=== PATIENT | female | born 1985 | race Caucasian/White ===

== ENCOUNTER → 2017-12-26 10:47 | Outpatient (CLI) | payer OTHER, SELFPAY ==
--- NOTE | 2017-12-26 10:49 | ECHOD_ITS ---
Reason For Study: arrhythmia Procedure This was a 2D Doppler, Color Flow transthoracic echocardiogram. Exam performed in department. Left Ventricle Normal LV size. Left ventricular systolic function is normal. The estimated ejection fraction is 60 %. Normal diastology for age. No regional wall motion abnormalities noted. Right Ventricle Normal RV size. Normal systolic function. Atria Normal left atrium. Normal right atrium. Mitral Valve Normal mitral valve. Tricuspid Valve Normal tricuspid valve. Mild (1+) tricuspid valve insufficiency. Pulmonary artery systolic pressure is 27 mmHg. Aortic Valve Normal aortic valve. Pulmonic Valve Normal pulmonic valve. Great Vessels Normal aortic root. The pulmonary artery is normal size. Normal inferior vena cava. Pericardium/Pleural No pericardial effusion. MMode/2D Measurements & Calculations LVIDd: 4.4 cm IVSd: 0.83 cm Ao root diam: 2.9 cm LVIDs: 2.9 cm LVPWd: 0.86 cm LA dimension: 4.0 cm RVDd: 3.1 cm FS: 35.6 % LAV(MOD-bp): 48.2 ml LA A4 area: 16.6 cm2 RA A4 area: 15.7 cm2 LAV(MOD-bp) Indexed: 24.6 ml/m2 LAV(MOD-sp2): 41.7 ml LAV(MOD-sp4): 41.9 ml Time Measurements MV dec time: 0.20 sec Doppler Measurements & Calculations MV E max jett: 74.0 cm/sec Lat Peak E' Jett: 18.0 cm/sec Med Peak E' Jett: 15.9 cm/sec MV A max jett: 39.1 cm/sec E/E' lat: 4.1 E/E' med: 4.6 MV E/A: 1.9 Ao V2 max: 111.0 cm/sec LV V1 max: 85.3 cm/sec PA V2 max: 121.2 cm/sec Ao max P.9 mmHg LV V1 max P.9 mmHg TR max jett: 238.2 cm/sec TR max P.7 mmHg Interpretation Summary Normal LV size. Left ventricular systolic function is normal. The estimated ejection fraction is 60 %. Mild (1+) tricuspid valve insufficiency. Pulmonary artery systolic pressure is 27 mmHg. Ordering Physician: Valente Woods Referring Physician: Garry Escudero Performed By: Damaris Santos, VIRIDIANA, RVT
== END ==
PROVIDERS: Family Provider Family Medicine; PCP Family Medicine; Visit Provider Internal Medicine Cardiovascular Disease
DX: R55 Syncope and collapse (principal)
CPT/HCPCS: 93306

== ENCOUNTER → 2019-02-16 | Outpatient (CLI) | payer OTHER, SELFPAY ==
--- OUTSIDE RECORDS SUMMARY | 2019-02-16 11:04 | XMS RPT_ITS | CCD ---
:1985 External Reference #:[id number] Author Organization [employer] Care Team Providers Name Role Phone Unavailable Unavailable Unavailable Allergies Reported Allergen Reaction(s) Severity Date of Onset Location doxycycline Translations: AO 09-27-2008 - [facility] [ doxycycline, [facility] Repository DOXYCYCLINE] haloperidol Translations: AOF 10-26-2012 - [facility] [ HALOPERIDOL] [place] Repository Results Result Name Value Range Unit Interpretation Flag Date Location quanttb on 2019-02-04 Mitogen minus NIL 6.16 Normal 02-04-2019 [facility] ([place] ([id number]) Comment: Result Comment: Performed By: [facility] [place] [id number] Sales Record Clerk: Alicia Jaffe M.D. CLIA#: [id number] Phone#: Performed By: #### INTPGP #### [place] [address] TB Interpretation No evidence of current Normal 02-04-2019 [facility] or previous infection [facility] [place]) with Mycobacterium (64439) tuberculosis. Comment: Result Comment: Performed By: [place] [address] Sales Record Clerk: Alicia Jaffe M.D. CLIA#: [id number] Phone#: Performed By: #### INTPGP #### [place] [address] TB NIL 0.11 IU/mL Normal 02-04-2019 [facility] [place] ([id number]) Comment: Result Comment: Performed By: [place] [address] Sales Record Clerk: Alicia Jaffe M.D. CLIA#: [id number] Phone#: Performed By: #### INTPGP #### [place] [address] TB Result Negative NEGAT Normal 02-04-2019 [facility] [place] ([id number]) Comment: Result Comment: Performed By: [facility] [place] [address] Sales Record Clerk: Alicia Jaffe M.D. CLIA#: [id number] Phone#: Performed By: #### INTPGP #### [place] [address] TB1 Ag minus NIL 0.00 <0.35 IU/mL Normal 02-04-2019 [facility] [place] ([id number]) Comment: Result Comment: Performed By: [facility] [place] [address] Sales Record Clerk: Alicia Jaffe M.D. CLIA#: [id number] Phone#: Performed By: #### INTPGP #### [place] [address] TB2 Ag minus NIL 0.00 <0.35 IU/mL Normal 02-04-2019 [facility] [place] ([id number]) Comment: Result Comment: Performed By: [facility] [place] [address] Sales Record Clerk: Alicia Jaffe M.D. CLIA#: [id number] Phone#: Performed By: #### INTPGP #### [place] [address] xr hand 3+ views right on 2018-04-08 XR Hand 3+ Exam Date/Time:04/07/2018 22:40 EDTReason Normal 04-08-[address] [facility] Views for Exam:Rt finger pain, Regional Right bruisingReportSTUDY:XR Hand 3+ Views Health System Right; 04/07/2018 10:40 pmINDICATION:Rt (03384) finger pain, bruising.COMPARISON:None. CLINICIAN:Travis mSith:Three views of the right hand including AP, oblique and lateral projections were obtained.FINDINGS:There is no evidence of acute fracture or dislocation identified. The joint spaces are well preserved throughout without significant degenerative changes.IMPRESSION:1. No fracture or dislocation. FINAL REPORT Dictated: 04/08/2018 1:51 pm Sd Rubio MD CSigned (Electronic Signature): 04/08/2018 1:51 pmSigned by: Sd Rubio MD Technologist: [facility] lab miscellaneous on 2017-11-15 Status See Ref Lab Report Normal 11-15-2017 [facility] ([id number]) Comment: Performed By: #### [id number] ####MIRNA [employer] [address] [place] [address] Test Name tb quantfereon Normal 11-15-2017 [facility] ([id number]) Comment: Performed By: #### [id number] ####MIRNA [employer] [address] [place] [address] hep bs ag on 2017-11-12 BSA (Body Surface Negative Negative m2 Normal 11-12-2017 [facility] ([id number]) Comment: Result Comment: Performed At: [facility] [id number] Vincent PhD Ph:[phone] Performed By: #### [id number] ####MIRNA [employer] Out[employer] [address] [place] [id number] hep bs ab on 2017-11-12 BSA (Body Surface Area) Reactive Normal 11-12-2017 [facility] ([id number]) Comment: Result Comment: Non Reactive: Inconsistent with immunity, less than 10 mIU/mL Reactive: Consistent with immunity, greater than 9.9 mIU/mLPerformed At: [facility] [id number] Vincent PhD Ph:[phone] Performed By: #### [id number] ####MIRNA [employer] [address] [place] [address] progress on 2017-05-26 PROGRESS HNO ID: [id number]: Tamir Burrows 05-26-2017 [facility] HospitalMelodyice: (none)Author Type: Clinic PhysicianType: Progress NotesFiled: Bird 05/26/2017 4:55 PMNote Text:Patient ([id number]) presents with:cough and congestion: x 2 weeksHPI:Feeling sick for 2 weeks. Seemed to improve then worsened again.Positive symptoms: Cough, Earache, Sinus pressure, Nasal Congestion,Rhinorrhea, Post nasal drainage, Chills,Negative symptoms: Fever,OTC: Nyquil, Dayquil, Cold Medicine, LozengesPAST MEDICAL HISTORYDiagnosis Date- Chronic depressive personality disorder With anxiety- Diarrhea- Dysmenorrhea 01/01 normal light flow- Infectious mononucleosis 1990- PCOS (polycystic ovarian syndrome)- PMH - PAST MEDICAL HISTORY OF [place] NORMALMEDICATIONS:Current Outpatient Prescriptions:DULoxetine (CYMBALTA) 60 mg capsule Take 60 mg by mouth once daily.omeprazole (PRILOSEC) 20 mg capsule TAKE 1 CAPSULE BY MOUTH ONCE DAILY.spironolactone (ALDACTONE) 50 mg tablet Take 1 tablet by mouth once daily.DAILY MULTIVITAMIN TAB Take one(1) tablet daily.Milnacipran (SAVELLA) 25 mg tab Take 1 tablet by mouth twice daily.ondansetron orally disintegrating (ZOFRAN ODT) 4 mg disintegrating tabletTake 1 tablet by mouth every 6 hours as needed for Nausea/Vomiting.clonazePAM (KLONOPIN) 1 mg tablet Take 1 mg by mouth twice daily asneeded. 0.25 bid as necessaryMethylcellulose, Laxative, (CITRUCEL) 500 mg Tab Take 2 tablets by mouthtwice daily.loperamide 2 mg cap(s) Take 2 capsules by mouth as directed. take in theam.No current facility-administered medications for this visit.ALLERGIES:ALLERGIESAllergen Reactions- Doxycycline Intolerance- Haldol [Haloperidol] Other: See Comments Feels suicidalVITALS:BP 100/64 Pulse 68 Temp 36.7 ?C (98 ?F) (Tympanic) Resp 16 Wt 91.4kg (201 lb 9.6 oz) SpO2 97% BMI 32.02 kg/a6PBAJNPKH EXAM: GEN: mildly ill appearing HEENT: PERRL, EOMI, conjunctiva clear Ears: canals clear, TMs without erythema, bulge, or effusion Sinuses: tender maxillary sinuses, tender frontal sinus Throat: moist mucous membranes, mild erythema, no exudate Neck: supple, no thyromegaly, no lymphadenopathy HEART: regular rate and rhythm, no murmurs LUNGS: clear to auscultation, no wheezes or crackles, no increased WOBASSESSMENT/PLAN:1. Acute non-recurrent sinusitis, unspecified location - ICD9: 461.9,ICD10: J01.90- Will begin treatment with as per antibiotic as written, see orders- AMOXICILLIN 875 MG TABLETTamir Navas MD cnov on 2017-05-26 CNOV Office Visit Normal 05-26-2017 [place] ([facility]) SUGAR CHENEY [facility] ([id number]) 1985 FDate Time Provider Department05/26/17 4:45 PM TAMIR NAVAS [facility] During your [place] visit today, we recorded the following information about you: Temperature Pulse Respiration Blood pressure (29156) 98 degrees 68/minute 16/minute 100/64 Weight 91.4 kgTamir Navas MD 05/26/2017 4:55 PM SignedPatient presents with:cough and congestion: x 2 weeksHPI:Feeling sick for 2 weeks. Seemed to improve then worsened again.Positive symptoms: Cough, Earache, Sinus pressure, Nasal Congestion,Rhinorrhea, Post nasal drainage, Chills,Negative symptoms: Fever,OTC: Nyquil, Dayquil, Cold Medicine, LozengesPAST MEDICAL HISTORYDiagnosis Date- Chronic depressive personality disorder With anxiety- Diarrhea- Dysmenorrhea 01/01 normal light flow- Infectious mononucleosis 1990- PCOS (polycystic ovarian syndrome)- PMH - PAST MEDICAL HISTORY OF [place] NORMALMEDICATIONS:Current Outpatient Prescriptions:DULoxetine (CYMBALTA) 60 mg capsule Take 60 mg by mouth once daily.omeprazole (PRILOSEC) 20 mg capsule TAKE 1 CAPSULE BY MOUTH ONCE DAILY.spironolactone (ALDACTONE) 50 mg tablet Take 1 tablet by mouth once daily.DAILY MULTIVITAMIN TAB Take one(1) tablet daily.Milnacipran (SAVELLA) 25 mg tab Take 1 tablet by mouth twice daily.ondansetron orally disintegrating (ZOFRAN ODT) 4 mg disintegrating tablet Take1 tablet by mouth every 6 hours as needed for Nausea/Vomiting.clonazePAM (KLONOPIN) 1 mg tablet Take 1 mg by mouth twice daily as needed.0.25 bid as necessaryMethylcellulose, Laxative, (CITRUCEL) 500 mg Tab Take 2 tablets by mouth twicedaily.loperamide 2 mg cap(s) Take 2 capsules by mouth as directed. take in the am.No current facility- administered medications for this visit.ALLERGIES:ALLERGIESAllergen Reactions- Doxycycline Intolerance- Haldol [Haloperidol] Other: See Comments Feels suicidalVITALS:BP 100/64 Pulse 68 Temp 36.7 ?C (98 ?F) (Tympanic) Resp 16 Wt 91.4 kg(201 lb 9.6 oz) SpO2 97% BMI 32.02 kg/s7EJEYZMPG EXAM: GEN: mildly ill appearing HEENT: PERRL, EOMI, conjunctiva clear Ears: canals clear, TMs without erythema, bulge, or effusion Sinuses: tender maxillary sinuses, tender frontal sinus Throat: moist mucous membranes, mild erythema, no exudate Neck: supple, no thyromegaly, no lymphadenopathy HEART: regular rate and rhythm, no murmurs LUNGS: clear to auscultation, no wheezes or crackles, no increased WOBASSESSMENT/PLAN:1. Acute non-recurrent sinusitis, unspecified location - ICD9: 461.9, ICD10:J01.90- Will begin treatment with as per antibiotic as written, see orders- AMOXICILLIN 875 MG Arlyn Navas, MDReferring Provider: SELF [200]Allergies As of Date: 05/26/2017 Noted Allergy ReactionDOXYCYCLINE 09/27/2008 5 - IntoleranceHALDOL (HALOPERIDOL) 10/26/2012 14 - Other: See Comments Comments: Feels suicidalDate Reviewed: 05/26/2017Reviewed by: Cindi Tavares LPN - Fully AssessedReason for Visit: cough and congestion [Other] Cmt: x 2 weeksPrimary Visit Diagnosis:Acute non-recurrent sinusitis, unspecified location [J01.90]Order(s):amoxicillin (AMOXIL) 875 mg tabletTake 1 tablet by mouth twice daily for 7 days.Disp: 14 tabletRfl: 0Prescriptions as of 05/26/2017 Sig: DULOXETINE 60 MG CAPSULE,SYDNEE* Take 60 mg by mouth once yoselin* OMEPRAZOLE 20 MG CAPSULE,SYDNEE* TAKE 1 CAPSULE BY MOUTH ONCE * SPIRONOLACTONE 50 MG TABLET Take 1 tablet by mouth once d* DAILY MULTIVITAMIN TABLET Take one(1) tablet daily. AMOXICILLIN 875 MG TABLET Take 1 tablet by mouth twice * MILNACIPRAN 25 MG TABLET Take 1 tablet by mouth twice * ONDANSETRON 4 MG DISINTEGRATI* Take 1 tablet by mouth every * CLONAZEPAM 1 MG TABLET Take 1 mg by mouth twice yoselin* METHYLCELLULOSE (LAXATIVE) 50* Take 2 tablets by mouth twice* LOPERAMIDE 2 MG CAPSULE Take 2 capsules by mouth as d*Medication notes this encounter MILNACIPRAN 25 MG TABLET >> Cindi Tavares LPN 05/26/2017 4:45 PM >> CINDI TAVARES LPN [facility] May 26, 2017 4:45 PM Not Taking CLONAZEPAM 1 MG TABLET >> Cindi Tavares LPN 05/26/2017 4:45 PM >> CINDI TAVARES LPN [facility] May 26, 2017 4:45 PM Not TakingProblem List As Of Date 05/26/2017 Noted Resolved DYSMENORRHEA [N94.6] INVALID FOR*05/31/2008 CHRONIC DEPRESSIVE PERSON [F34.1] INVALID FOR* Dysmetabolic syndrome [E88.81] INVALID FOR* Diarrhea [R19.7] PCOS (polycystic ovarian syndrome) [E28.2] INVALID FOR* More... GERD (gastroesophageal reflux disease) [K21.9] INVALID FOR* Priority: APrescriptions ordered this encounter Disp Refills Start End AMOXICILLIN 875 MG TABLET 14 t* 0 05/26/2017 06/02/2017 Route: ORAL Sig: Take 1 tablet by mouth twice daily for 7 days. Status:Closed by TAMIR NAVAS MD on 05/26/17 Encounters Date Type Reason Provider Location [facility] 04-08-2018 [facility] Garry Escudero 11-10-2017 - Ambulatory [facility] Facility:[facility] 11-11-2017 [facility] 05-26-2017 - Ambulatory TAMIR NAVAS [facility] 05-26-2017 [place] ([id number]) 04-01-2018 - Emergency department [facility] Facility:[facility] 04-01-2018 patient visit A [facility] 04-07-2018 Patient encounter Facility:[id number] 04-01-2018 Patient encounter Facility:9509 01-31-2019 - Patient encounter BEN BELGICA BEN Facility:A 02-01-2019 paul LINDO Payers Payer Name Policy Number Location [facility] ([id number]) Commercial [id number] [facility] ([id number]) SELF PAY [facility] [place] ([id number]) [facility] ([id number]) [facility] [id number] [facility] ([id number]) [id number] [facility] [place] (35276) The following information is from the original human readable content ENCOUNTER GUARANTOR PAYER SUBSCRIBER SOURCE 04/07/2018 SUGAR CHENEYDOB: [facility] [id number] [facility] [id number] [facility] System [facility] RDAPPLE Number: Effective RDAPPLE [place], [place] Date:2018-04-07 [id number]: [phone]: [phone] [phone] ()Tel: [phone]) Name:CD:[phone] (WP) () 04/01/2018 SUGAR HSIEHB: Insurance:[facility]B: [facility] Number: Effective [id number] LIB[facility] System [facility] RDAPPLE Date:2018-04-01 - RDAPPLOS [place] Repository [facility] [place] [id number] [phone]: [phone]: Name:Worker's [phone] (HP)Tel: [phone]) [id number] [phone] (WP) (HP) [place], [place] [address]JH: 614 11/10/2017 [facility] Number: Effective [id number] LIBRADO System LIBRADO ROApple Date:2017-11-10 [place] [id number] [id number]: [phone]: [phone]) Name:CD:[id number] [phone] (HP)Tel: [phone] () [facility] () [address]XD: ENCOUNTER GUARANTOR PAYER SUBSCRIBER SOURCE 04/07/2018 [facility] [id number] Repository LIBRADO RDAPPLE [facility] Number: [place] [address] [place] [id number] [id number]: Date:Plan [id number]: [phone]) Name:[facility] [phone] () () 04/01/2018 [facility]: [facility] lPolicy Number: [id number] Repository LIBRADO ROApple [id number] LIBRADO [place], [place] Date:[place], [place] [address]Qvh: [phone]: [phone]) Name:[facility] () [phone] (HP) ENCOUNTER GUARANTOR PAYER SUBSCRIBER SOURCE 01/31/2019 SUGAR Gagandeep Primary SUGAR [facility] HospitalTETTERDOB: Insurance:SELF [facility]Y [facility]: [facility] [id number] INSCOPolicy Number: [id number] Repository LIBRADO DALAL [place] [address] Date:2019-01-31 [place] [id number] [id number]: (000) Name:[phone] (WP) Summary Purpose DATE CREATED AUTHOR AUTHOR'S ORGANIZATION 04/18/2018 [facility] DATE CREATED AUTHOR AUTHOR'S ORGANIZATION 04/26/2018 [facility] DATE CREATED AUTHOR AUTHOR'S ORGANIZATION 06/22/2018 [facility] DATE CREATED AUTHOR AUTHOR'S ORGANIZATION 02/05/2019 [facility] [place]) Family History No Family History Records Found Advance Directives No Advanced Directives Records Found Additional Source Comments FOR RECORDS PERTAINING TO PATIENTS WHO ARE OR HAVE BEEN ENROLLED IN A CHEMICAL DEPENDENCY/SUBSTANCE ABUSE PROGRAM, SOME INFORMATION MAY BE OMITTED. This clinical summary was aggregated from multiple sources. Caution should be exercised in using it in the provision of clinical care. This summary normalizes information from multiple sources, and as a consequence, information in this document may materially changethe coding, format and clinical context of patient data. In addition, data may be omittedin some cases. CLINICAL DECISIONS SHOULD BE BASED ON THE PRIMARY CLINICAL RECORDS. [facility] provides no warranty or guarantee of the accuracy or completeness of information in this document. UNRECOGNIZED CONTENT PROVIDED BELOW FOR UNRECOGNIZED SECTION INFORMATION SOURCE DATE CREATED AUTHOR AUTHOR'S ORGANIZATION 02/05/2019 [facility] [place]) DATE CREATED AUTHOR AUTHOR'S ORGANIZATION 06/22/2018 [facility] DATE CREATED AUTHOR AUTHOR'S ORGANIZATION 04/26/2018 [facility] DATE CREATED AUTHOR AUTHOR'S ORGANIZATION 04/18/2018 [facility]
[2019-02-16 13:13] LABS: Anion Gap 7 (5-15); BUN 7 mg/dL (7-18); BUN/Creat Ratio 8.5 RATIO (10-20); Calcium,Total 9.1 mg/dL (8.5-10.1); Chloride 106 mmol/L (98-107); Cholesterol 211 mg/dL (200); Creatinine, Serum 0.82 mg/dL (0.55-1.02); EST Glomerular Filtration Rate 85 mL/min (>60); Est Glom Filt Rate - Afr Amer 103 mL/min (>60); Glucose 94 mg/dL (74-106); High Density Lipoprotein 49 mg/dL; Potassium 4.1 mmol/L (3.5-5.1); Sodium Level 142 mmol/L (136-145); Triglycerides 95 mg/dL; Very Low Density Lipoprotein 19 mg/dL (5-40)
== END | disposition home or self-care (01) ==
PROVIDERS: Family Provider Family Medicine; PCP Family Medicine; Referring Provider Family Medicine; Visit Provider Family Medicine
DX: Z00.00 Encounter for general adult medical examination without abnormal findings (principal)
CPT/HCPCS: 36415; 80048; 80061

== ENCOUNTER → 2019-03-13 18:08 | Outpatient (CLI) | payer OTHER, SELFPAY ==
[2018-03-03 13:06] VITALS: BMI 30.9
[2019-03-20 16:40] LABS: HPV Reflexed? NOT INDICATED
== END ==
PROVIDERS: Family Provider Family Medicine; PCP Family Medicine; Referring Provider Nurse Practitioner Adult Health; Visit Provider Nurse Practitioner Adult Health
DX: Z01.419 Encounter for gynecological examination (general) (routine) without abnormal findings (principal)
CPT/HCPCS: 88175; G0145

== ENCOUNTER → 2019-07-16 | Outpatient (CLI) | payer OTHER, SELFPAY ==
[2019-03-20 15:16] VITALS: BMI 29.9
--- NOTE | 2019-07-16 06:45 | MRI_ITS ---
STUDY: MRI BRAIN WITHOUT CONTRAST REASON FOR EXAM: Female, 34 years old. headaches, left occipital, change in location and severity from prev headaches. TECHNIQUE: Standardized multiplanar fat and water weighted pulse sequences were obtained. COMPARISON: None. FINDINGS: Normal size of the ventricles and extra-axial spaces for the patient's age. Normal white matter tracts of the supratentorial brain. Normal bilateral basal ganglia. Normal thalami. There is no extra-axial fluid accumulation. Normal flow voids within the major intracranial circulation suggesting patency by spin echo criteria. Normal sella turcica, pituitary gland, infundibular stalk, optic chiasm and hypothalamus. Normal tectal plate and pineal gland. Normal midbrain, moisés and medulla. Normal cerebellum. Normal basal cisterns. Normal bilateral temporal bones. Normal bilateral internal auditory canals. No demonstrated orbital abnormality, within the constraints of a routine brain study. Normal visualized paranasal sinuses. Normal calvarium and skull base. Normal visualized soft tissue structures. Normal visualized upper cervical spine. MRI/Brain without Contrast IMPRESSION: Normal unenhanced MRI of the brain. Electronically Signed: Anahi Bourgeois MD at 9:04 EDT Tel , Service support ,
== END | disposition home or self-care (01) ==
LOC: MRI 06:40
PROVIDERS: Family Provider Family Medicine; PCP Family Medicine; Referring Provider Family Medicine; Visit Provider Family Medicine
DX: R51 Headache (principal)
CPT/HCPCS: 70551

== ENCOUNTER → 2019-11-06 12:59 | Outpatient (CLI) | payer OTHER, SELFPAY ==
[2019-03-20 15:16] VITALS: BMI 29.9
== END ==
PROVIDERS: Family Provider Family Medicine; PCP Family Medicine; Referring Provider Internal Medicine Gastroenterology; Visit Provider Internal Medicine Gastroenterology
DX: K21.9 Gastro-esophageal reflux disease without esophagitis (principal)

== ENCOUNTER → 2019-11-06 13:27 | Outpatient (CLI) | payer OTHER, SELFPAY ==
[2019-03-20 15:16] VITALS: BMI 29.9
--- NOTE | 2019-11-06 | IMM_PTH ---
PATIENT: SUGAR CHENEY LOC: [place] U#:[id number] AGE/SX: 40/F ROOM: RE11/06/[address]: Dr. Jay Aragon MD : 1985 BED: DIS: SPEC #: [id number] RECD: 11/06/19 14:41 STATUS: MARJORIE REQ #: [id number] TWIN: 11/06/19 00:[address]: Jay Aragon DEPT: IMMUNOHISTOCHEMISTRY RECD BY: Grisel Wolfe ENTERED: 11/06/19 14:41 SP TYPE: IMMUNO OTHR DR: Dr. Garry Escudero MD Tissues: Stomach, NOS Procedures: H Pylori (initial) PHYSICIAN & INSTITUTION [place] [id number] SPECIMEN INFORMATION: Tissue Source: Antral biopsy Clinical Info: K21.9 Specimen Number: [id number] CPT code: 36569 METHODOLOGY: Deparaffinized sections of prefer/formalin-fixed tissue or PAP/DQ stained slides are incubated with monoclonal/polyclonal antibodies/oligonucleotide probes. Localization is made via biotin free immunoperoxidase method. Appropriate controls are performed and reacted as expected. Results on target cell population are indicated in the following table: RESULTS: ANTIBODY / CLONE RESULT H Pylori (polyclonal) negative These tests were developed and their performance characteristics determined by [facility]. They may not have been cleared or approved by the U.S. Food and Drug Administration. The FDA has determined that such clearance or approval is not necessary. INTERPRETATION: Antral biopsy: Negative for Helicobacter pylori organisms. AM:clarissa 11/07/19
--- NOTE | 2019-11-06 | EGD_PTH ---
PATIENT: SUGAR CHENEY [facility] U#:[id number] AGE/SX: 40/F ROOM: RE11/06/[address]: [address]. Jay Aragon MD : 1985 BED: DIS: SPEC #: [id number] RECD: 11/06/19 12:13 STATUS: MARJORIE REAinsley #: [id number] TWIN: 11/06/19 00:[address]: Jay Aragon DEPT: SURGICAL PATHOLOGY RECD BY: Pineda Silva ENTERED: 11/06/19 13:33 SP TYPE: EGD BIOPSY DULCE DR: Dr. Garry Escudero MD Tissues: Gastric mucous membrane Procedures: Surgery Specimen Level IV HEADER OPERATION: EGD PRE-OP DIAGNOSIS: K21.9 TISSUE SUBMITTED: Antral biopsy H/H MICROSCOPIC DIAGNOSIS Gastric antrum, biopsy: Mild chronic gastritis. See comment. AM:clarissa 11/07/19 COMMENT The results of immunohistochemistry for Helicobacter pylori will be reported separately ([id number]). MICROSCOPIC DESCRIPTION Slides are reviewed. GROSS DESCRIPTION Received in fixative is one container labeled with the patient's name and designated antral biopsy. The specimen consists of multiple irregular fragments of light pavon soft tissue that in aggregate measure 0.5 x 0.2 x 0.1 cm. The specimen is totally submitted in one cassette. / SJ:clarissa 11/06/19 TC:3 CPT: 56738
== END ==
PROVIDERS: Family Provider Family Medicine; PCP Family Medicine; Visit Provider Internal Medicine Gastroenterology
DX: K21.9 Gastro-esophageal reflux disease without esophagitis (principal)
CPT/HCPCS: 88305; 88342

== ENCOUNTER → 2020-11-25 11:09 | Outpatient (CLI) | payer OTHER, SELFPAY ==
[2019-03-20 15:16] VITALS: BMI 29.9
[2020-11-25 12:03] LABS: Hematocrit 39.6 % (37-47); Hemoglobin 13.3 g/dL (12.0-15.0); Mean Corp Hgb Conc 33.6 g/dL (32-36); Mean Corpuscular Hgb 30.6 pg (27.0-32.0); Mean Corpuscular Volume 91.2 fL (81-99); Mean Platelet Vol. 9.7 fl (6.2-12.0); Platelet Count 256 K/mm3 (150-450); RBC Distribution Width CV 12.1 % (11.6-14.6); RBC Distribution Width SD 40.7 fl (35.1-43.9); Red Blood Count 4.34 M/mm3 (4.2-5.4); White Blood Count 5.4 K/mm3 (4.4-11.0)
[2020-11-25 12:49] LABS: ALB/GLOB Ratio 0.9 RATIO (0.9-2.4); AST(SGOT) 12 U/L (15-37); Alanine Aminotransfer ALT/SGPT 17 U/L (13-56); Albumin, Serum 3.3 g/dL (3.2-5.0); Alkaline Phosphatase 37 U/L (45-117); Anion Gap 5 (5-15); BUN 9 mg/dL (7-18); BUN/Creat Ratio 11.7 RATIO (10-20); Calcium,Total 8.6 mg/dL (8.5-10.1); Chloride 109 mmol/L (98-107); Cholesterol 198 mg/dL (200); Creatinine, Serum 0.77 mg/dL (0.55-1.02); EST Glomerular Filtration Rate 91 mL/min (>60); Est Glom Filt Rate - Afr Amer 110 mL/min (>60); Globulin 3.6 g/dL (2.2-4.2); Glucose 96 mg/dL (74-106); High Density Lipoprotein 67 mg/dL; Potassium 4.1 mmol/L (3.5-5.1); Protein, Total 6.9 g/dL (6.4-8.2); Sodium Level 141 mmol/L (136-145); Thyroid Stim Hormone (TSH) 2.04 uIU/mL (0.358-3.74); Triglycerides 89 mg/dL; Very Low Density Lipoprotein 18 mg/dL (5-40)
== END ==
PROVIDERS: PCP Family Medicine; Visit Provider Registered Nurse
DX: Z00.00 Encounter for general adult medical examination without abnormal findings (principal)
CPT/HCPCS: 36415; 80053; 80061; 84443; 85027

== ENCOUNTER → 2021-01-13 14:07 | Outpatient (CLI) | payer OTHER, SELFPAY ==
[2019-03-20 15:16] VITALS: BMI 29.9
--- NOTE | 2021-01-13 14:11 | BI_ITS ---
MAMMOGRAPHY - BILATERAL DIAGNOSTIC REASON FOR EXAM: Female, 35 years old. Left breast lump. PERTINENT HISTORY: Non-contributory. TECHNIQUE: Digital bilateral breast anne marie (3D mammographic acquisition) in the CC and MLO projections. 2-D mediolateral oblique (MLO) and craniocaudad (CC) views of both breasts were obtained. CAD: Full Field Digital Mammography with Computer Added Detection was performed. COMPARISON: None. Baseline examination. FINDINGS: Breast Composition: The breasts are extremely dense, which lowers the sensitivity of mammography. There are no dominant masses or suspicious calcifications. No other significant abnormalities are identified. BI/DIAG MAMM W/CAD, BILAT IMPRESSION: Negative diagnostic mammogram. With the patient''s history of a left breast lump, correlation with ultrasound is recommended. ASSESSMENT CATEGORY: BIRADS Category 0: Incomplete. Need additional imaging evaluation. A letter regarding these results will be sent to the patient by the facility within 30 days. Approximately 10% of breast cancers are not detected by mammography. A normal mammogram should not delay biopsy of a clinically suspicious abnormality. Electronically Signed: Jerrod Lim MD at 15:03 EDT , Service support ,
--- NOTE | 2021-01-13 14:12 | US_ITS ---
STUDY: ULTRASOUND BREAST - LEFT REASON FOR EXAM: Female, 35 years old. Palpable lump left breast. TECHNIQUE: Axial and longitudinal images of the LEFT breast were performed with a high resolution ultrasound transducer. # OF IMAGES: 9 COMPARISON: Comparison is made with prior mammogram done earlier in the day. FINDINGS: LEFT Breast: The inferior aspect of the left breast was examined by ultrasound. No sonographic abnormality is seen. US/Breast Limited Unilateral IMPRESSION: No sonographic abnormality is seen. ASSESSMENT CATEGORY: BIRADS Category 1: Negative. A letter regarding these results will be sent to the patient by the facility within 30 days. Electronically Signed: Jerrod Lim MD at 15:54 EDT , Service support ,
== END ==
PROVIDERS: PCP Family Medicine; Referring Provider Obstetrics & Gynecology; Visit Provider Obstetrics & Gynecology
DX: N63.20 Unspecified lump in the left breast, unspecified quadrant (principal)
CPT/HCPCS: 76642; 77062; 77066; G0279

== ENCOUNTER → 2021-07-02 07:51 | Outpatient (CLI) | payer OTHER, SELFPAY | PROVIDERS: PCP Family Medicine; Referring Provider Family Medicine; Visit Provider Family Medicine | DX: R19.7 Diarrhea, unspecified (principal) | CPT/HCPCS: 87493; 87506 ==

== ENCOUNTER → 2021-08-18 16:11 | Outpatient (CLI) | payer OTHER, SELFPAY ==
[2021-08-24 15:22] LABS: HPV Reflexed? NOT INDICATED
== END ==
PROVIDERS: PCP Family Medicine; Visit Provider Obstetrics & Gynecology
DX: Z12.4 Encounter for screening for malignant neoplasm of cervix (principal); R30.0 Dysuria
CPT/HCPCS: 87086; 87088; 88175; G0145

== ENCOUNTER 2022-01-19 13:32 | Outpatient (CLI) | payer OTHER, SELFPAY ==
[2022-01-19 15:20] LABS: Hematocrit 41.2 % (37-47); Hemoglobin 13.8 g/dL (12.0-15.0); Mean Corp Hgb Conc 33.5 g/dL (32-36); Mean Corpuscular Hgb 30.1 pg (27.0-32.0); Mean Corpuscular Volume 89.8 fL (81-99); Mean Platelet Vol. 9.8 fl (6.2-12.0); Platelet Count 271 K/mm3 (150-450); RBC Distribution Width CV 12.2 % (11.6-14.6); RBC Distribution Width SD 40.4 fl (35.1-43.9); Red Blood Count 4.59 M/mm3 (4.2-5.4); White Blood Count 4.8 K/mm3 (4.4-11.0)
[2022-01-19 15:44] LABS: Estradiol < 11.0 pg/mL; Follicle Stimulating Hormone 1.6 mIU/mL; Luteinizing Hormone 8.4 mIU/mL; T4 Free Direct 0.83 ng/dL (0.76-1.46); Thyroid Stim Hormone (TSH) 1.29 uIU/mL (0.358-3.74)
== END 2022-01-19 23:59 | disposition home or self-care (01) ==
LOC: WOBLAB 13:33
PROVIDERS: PCP Family Medicine; Visit Provider Obstetrics & Gynecology
DX: R61 Generalized hyperhidrosis (principal)
CPT/HCPCS: 36415; 82670; 83001; 83002; 84439; 84443; 85027

== ENCOUNTER → 2022-10-12 | Outpatient (CLI) | payer OTHER, SELFPAY ==
[2022-10-12 15:15] LABS: Absolute Neutrophil Count 3.6 X10^3/uL (2.0-7.7); Basophil# 0.01 X10^3/uL; Basophil% 0.2 % (0-1); Eosinophil# 0.06 X10^3/uL; Hematocrit 45.7 % (37-47); Lymphocyte % 29.2 % (19-41); Mean Corp Hgb Conc 32.8 g/dL (32-36); Mean Corpuscular Volume 91.4 fL (81-99); Mean Platelet Vol. 9.1 fl (6.2-12.0); Monocyte# 0.46 X10^3/uL; Monocyte% 7.9 % (0-10); NRBC Flagged by Analyzer 0 % (0-5); Neutrophil # 3.58 X10^3/uL (2.7-7.7); Neutrophil % 61.5 % (47-70); Platelet Count 277 K/mm3 (150-450); RBC Distribution Width CV 12.3 % (11.6-14.6); RBC Distribution Width SD 41.1 fl (35.1-43.9); White Blood Count 5.8 K/mm3 (4.4-11.0)
[2022-10-12 15:58] LABS: Estradiol 249.5 pg/mL; Follicle Stimulating Hormone 13.2 mIU/mL; Luteinizing Hormone 97.1 mIU/mL; T4 Free Direct 0.88 ng/dL (0.76-1.46); Thyroid Stim Hormone (TSH) 1.06 uIU/mL (0.358-3.74)
[2022-10-21 10:08] LABS: Testosterone, Free 0.53 ng/dL (0.10-0.85); Testosterone, Total 30 ng/dL (8-60)
[2022-10-21 16:19] LABS: Testosterone, % Free 1.75 % (0.50-2.80)
== END | disposition home or self-care (01) ==
LOC: WOBLAB 14:56
PROVIDERS: PCP Family Medicine; Visit Provider Obstetrics & Gynecology
DX: N93.9 Abnormal uterine and vaginal bleeding, unspecified (principal)
CPT/HCPCS: 36415; 82670; 83001; 83002; 84402; 84403; 84439; 84443; 85025

== ENCOUNTER → 2023-03-29 | Outpatient (CLI) | payer OTHER, SELFPAY ==
[2023-03-31 22:06] LABS: Chlamydia By Nucleic Acid AMP Negative (Negative); Gonococcus By Nucleic Acid AMP Negative (Negative)
== END | disposition home or self-care (01) ==
LOC: LABSPEC 15:10
PROVIDERS: PCP Family Medicine; Visit Provider Obstetrics & Gynecology
DX: N76.0 Acute vaginitis (principal)
CPT/HCPCS: 87491; 87591

== ENCOUNTER 2023-05-17 05:56 | Day surgery (SDC) | payer OTHER, SELFPAY ==
[2023-05-17] VITALS (7 sets, daily range): BP systolic 110–116; BP diastolic 69–78; PULSE 61–70; RESP 16–18; TEMP 36.5–36.6; O2SAT 99–100; BMI 27.2
--- NOTE | 2023-05-17 06:09 | PCM.HP.BLA ---
History and Physical Date of Admission: 05/17/23 Visit Reasons: C-Scope family HX & Diarrhea Chief Complaint: c-scope fam hx Service Now Developer Required: No Is patient in pain?: No Allergies doxycycline Allergy (Verified 04/20/23 08:01) Otherhaloperidol [From Haldol] Allergy (Verified 04/20/23 08:01) Otherhaloperidol lactate [From Haldol] Allergy (Verified 04/20/23 08:01) Other Medications cetirizine 10 mg tablet (Zyrtec) 10 mg PO QDAY 11/25/17 [History Confirmed 03/20/19] melatonin 5 mg capsule mg PO QHS 11/25/17 [History Confirmed 03/20/19] multivitamin,it-zxyw-yxpftdji (Complete Multivitamin tablet) 1 tab PO QDAY 11/25/17 [History Confirmed 03/20/19] omeprazole 40 mg capsule,delayed release 40 mg PO QDAY 11/25/17 [History Confirmed 03/20/19] spironolactone 50 mg tablet (Aldactone) 50 mg PO QDAY 11/25/17 [History Confirmed 03/20/19] duloxetine 60 mg capsule,delayed release 60 mg PO 04/20/23 [History Confirmed 04/20/23] levonorgestrel 21 mcg/24 hours (8 yrs) 52 mg intrauterine device (Mirena) 1 device intrauterine ONCE 04/20/23 [History Confirmed 04/20/23] topiramate 100 mg tablet tablet PO 04/20/23 [History Confirmed 04/20/23] PFSH Medical History ADHD Anxiety Depression GERD (gastroesophageal reflux disease) IBS (irritable bowel syndrome) Obesity (BMI 30-39.9) POTS (postural orthostatic tachycardia syndrome) Syncope and collapse Surgical History H/O toe surgery S/P arthroscopic knee surgery S/P tonsillectomy and adenoidectomy Social History Smoking Status: Never smoker alcohol intake: current Alcohol type: wine and hard liquor substance use type: does not use caffeine: Yes Type: carbonated beverages, coffee and tea what type of physical activity do you participate in: walking and yoga frequency: 3-4 times per week duration: 45-60 minutes/day seatbelt use: always do you feel safe at home: Yes HPI HPI HPI: 57-year-old female is being referred by Dr. Grary Escudero for surgical consultation for possible colonoscopy secondary to unexplained diarrhea and incontinence. There is further concern regarding family history of colon cancer in her mother. A written copy of my surgical consult recommendations will be returned to Dr. Escudero. The patient has not had a previous colonoscopy. Patti does still swim but she is taking up running and she also bike rides. When she is running in particular she may have stool incontinence. She thinks it is due to the stool consistency. She has had a previous colonoscopy per Dr. Juan Carlos Sequeira the patient does not recall the details as it was January 30, 2013. Random biopsies were obtained it was negative for collagenous colitis. She has any bright red blood per rectum or melena. She does get some abdominal pain particularly left lower quadrant intermittently. No unexpected weight loss. Family history is notable that her mother had colon cancer young approximately age 50. The patient herself thinks she might be gluten intolerant and she has been avoiding gluten for 5 years. She states she has not had any laboratory testing. She states that her stools often seem to float but she has not been tested for pancreatic insufficiency. She does have chronic gastroesophageal reflux disease. She is on omeprazole therapy but she states that her symptoms are so much improved that she may go and cut herself down from 40 mg to 20 mg daily. She has had no history of DVT. ROS General General: Yes fatigue; No weight change, appetite, colon cancer, breast cancer or weakness HEENT HEENT: No difficulty swallowing, eye injury, eye surgery, swollen glands or hoarseness Endo Endocrine: No thyroid disease, diabetes mellitus, thyroid cancer, Hair loss, heat intolerance or cold intolerance Skin Skin: No rash or changing moles Breast Breast: No left breast lump, right breast lump, nipple discharge, breast pain, abnormal mammogram, abnormal US or breast enlargement Musc Musculoskeletal: Yes back problems; No arthritis, rheumatoid arthritis, gout or joint pain Cardio Cardiovascular: No murmur, pacemaker, heart disease, atrial fibrillation, high blood pressure, heart attack, heart stent, palpitations, shortness of breat with exertion or chest pain Psych Psychiatric: Yes depression and anxiety; No hearing voices Resp Respiratory: No shortness of breath, No sleep apnea, No cough, No COPD, No asthma, No emphysema and No wheezing Gastro Gastrointestinal: No abdominal pain, Yes nausea or vomiting, Yes diarrhea, No constipation, No blood in stool, Yes acid reflux, Yes hemorrhoids, No ulcers, No gallbladder problem and No black,tarry stools Dionisio Hematologic: No blood thinners, No blood disorders, No bleeding, No anemia and No blood clots Neuro Neurologic: No system reviewed and no additional complaints, except as documented, No as per HPI, No abnormal gait, No abnormal hearing, No abnormal movements, No abnormal speech, No behavioral changes, No burning sensations, No confusion, No convulsions, No disequilibrium, No dizziness, No localized weakness, No frequent falls, No headache(s), No lack of coordination, No loss of vision, No memory loss, No numbness, No other visual disturbances, No radicular pain, No restless legs, No sensory deficit, No syncope, No tingling, No tremor(s), No weakness and No other Exam Const General: cooperative, healthy appearing, comfortable and no acute distress HENMI Head: normal to inspection Eyes General: appearance normal, both eyes and all related structures Neck Neck: normal visual inspection Resp Effort & Inspection: normal respiratory effort Auscultation: clear to auscultation bilaterally Cardio Rate: regular rate Rhythm: regular rhythm GI Inspection: normal to inspection Palpation: soft and no hepatosplenomegaly Percussion: normal to percussion Other: Very minimal tenderness palpation left lower quadrant. No mass. No guarding or rebound. Musc Cervical Spine: normal cervical lordosis Skin General: no rashes or lesions noted Neuro General: patient alert, patient awake and patient oriented x3 Extrem General: no calf tenderness Psych Appearance: grossly normal Assessment and Plan Assessment and Plan (1) Diarrhea: Status: Acute (2) Family history of colon cancer in mother: Status: Acute Plan: I recommended the patient a colonoscopy with possible biopsy or polypectomy as indicated. I will make effort to intubate the terminal ileum. Likely random colonic biopsies will be pursued as well. She has had an opportunity ask and have questions answered. Pending findings if her symptoms persist she might follow-up with Dr. Garry Escudero regarding laboratory testing for gluten insufficiency and or evaluation for pancreatic insufficiency. Appreciate the opportunity of assisting with her surgical care. Plan Copy: Dr. Garry Jane M.D., F.A.C.S I have examined the patient and the H&P has been reviewed. There are no clinical changes since date of exam. Moe Jane M.D., F.A.C.S.
[2023-05-17 06:35] LABS: Internal QC Validated? YES +Cl - CLEAR BKGD; Pregnancy, Urine Negative Negative
[2023-05-17] MEDS: Lactated Ringers 1,000 ML 15 ML IV (06:35)
--- NOTE | 2023-05-17 07:00 | COLBX_PTH ---
PATIENT: SUGAR CHENEY LOC: EN U#:[id number] AGE/SX: 37/F ROOM: RE05/17/[address]: Dr. Moe Jane MD : 1985 BED: DIS: 05/17/2023 SPEC #: [id number] RECD: 05/17/23 08:05 STATUS: MARJORIE HOOVER #: [id number] TWIN: 05/17/23 07:[address]: Moe Jane DEPT: SURGICAL PATHOLOGY RECD BY: Malik Sow ENTERED: 05/17/23 08:58 SP TYPE: COLON BX OTHR DR: Dr. Garry Escudreo MD Tissues: A - Ileum, NOS B - COLON BIOPSY Procedures: Surgery Specimen Level IV HEADER OPERATION: Colonoscopy (MAC) with biopsies PRE-OP DIAGNOSIS: Diarrhea, family history of colon cancer TISSUE SUBMITTED: A - Terminal ileum biopsy, B - Random colon biopsies MICROSCOPIC DIAGNOSIS A. Terminal ileum, biopsy: Fragments of small intestinal mucosa, no pathologic diagnosis. B. Colon, random biopsy: Fragments of colonic mucosa, no pathologic diagnosis. MOSES:clarissa 05/18/2023 MICROSCOPIC DESCRIPTION Slides are reviewed. GROSS DESCRIPTION A - Received in fixative is one container labeled with the patient's name and designated terminal ileum biopsy. The specimen consists of multiple irregular fragments of light pavon soft tissue that in aggregate measure 0.4 x 0.1 x 0.1 cm. The specimen is totally submitted in one cassette. B - Received in fixative is one container labeled with the patient's name and designated random colon biopsy. The specimen consists of multiple irregular fragments of light pavon soft tissue that in aggregate measure 2.5 x 0.5 x 0.1 cm. The specimen is totally submitted in one cassette. / MOSES:clarissa 05/17/2023 TC:4 CPT: 78169 x2
--- NOTE | 2023-05-17 07:43 | OP.CCLET_ITS ---
05/17/2023 Garry Escudero MD [address] [id number] Re : Colonoscopy procedure for [facility] Dear Dr. Escudero This procedure was performed on Wednesday, May 17, 2023. My impressions and recommendations are as follows: Impressions : - Hemorrhoids found on perianal exam. - The examined portion of the ileum was normal. Biopsied. - The entire examined colon is normal. Biopsied. Recommendations : - Discharge patient to home. - Resume previous diet. - Continue present medications. - Repeat colonoscopy in 5 years for surveillance based on pathology results. - Telephone my office for pathology results in 1 week. My findings are described in the full procedure note, which is enclosed. If I can be of further assistance, please feel free to contact me at Doctor phone number(s): Work: . Sincerely, Moe Jane MD 05/17/2023 7:42:50 AM This report has been signed electronically.
--- NOTE | 2023-05-17 07:43 | OP.COLON_ITS ---
Patient Name: Patti Waldrop Procedure Date: 05/17/2023 6:56 AM Date of : 1985 Age: 37 Procedure: Colonoscopy Indications: Family history of colon cancer in a first-degree relative, Chronic diarrhea Providers: Moe Jane MD Referring MD: Garry Escudero MD Medicines: See the Anesthesia note for documentation of the administered medications Patient Profile: Last Colonoscopy: January 2013. Complications: No immediate complications. Procedure: Pre-Anesthesia Assessment: - Prior to the procedure, a History and Physical was performed, and patient medications and allergies were reviewed. The patient's tolerance of previous anesthesia was also reviewed. The risks and benefits of the procedure and the sedation options and risks were discussed with the patient. All questions were answered, and informed consent was obtained. Prior Anticoagulants: The patient has taken no previous anticoagulant or antiplatelet agents. ASA Grade Assessment: I - A normal, healthy patient. After reviewing the risks and benefits, the patient was deemed in satisfactory condition to undergo the procedure. After I obtained informed consent, the scope was passed under direct vision. Throughout the procedure, the patient's blood pressure, pulse, and oxygen saturations were monitored continuously. The pediatric colonoscope was introduced through the anus and advanced to the cecum, identified by appendiceal orifice and ileocecal valve. The colonoscopy was performed without difficulty. The patient tolerated the procedure well. The quality of the bowel preparation was good. The ileocecal valve and the appendiceal orifice were photographed. Scope In: 7:17:50 AM Scope Withdrawal Time 0 hours 12 minutes 19 seconds Scope Out: 7:36:48 AM Total Procedure Duration Time 0 hours 18 minutes 58 seconds Findings: Hemorrhoids were found on perianal exam. The terminal ileum appeared normal. Biopsies were taken with a cold forceps for histology. The colon (entire examined portion) appeared normal. Biopsies for histology were taken with a cold forceps from the entire colon for evaluation of microscopic colitis. Impression: - Hemorrhoids found on perianal exam. - The examined portion of the ileum was normal. Biopsied. - The entire examined colon is normal. Biopsied. Recommendation: - Discharge patient to home. - Resume previous diet. - Continue present medications. - Repeat colonoscopy in 5 years for surveillance based on pathology results. - Telephone my office for pathology results in 1 week. Procedure Code(s): --- Professional --- 67379, Colonoscopy, flexible; with biopsy, single or multiple Diagnosis Code(s): --- Professional --- K64.9, Unspecified hemorrhoids Z80.0, Family history of malignant neoplasm of digestive organs K52.9, Noninfective gastroenteritis and colitis, unspecified CPT copyright 2017 [employer]. All rights reserved. The codes documented in this report are preliminary and upon insurance coder review may be revised to meet current compliance requirements. Moe Jane MD 05/17/2023 7:42:50 AM This report has been signed electronically. Number of Addenda: 0 Note Initiated On: 05/17/2023 6:56 AM
== END 2023-05-17 08:22 | disposition home or self-care (01) ==
LOC: EN 05:57 → AC 05:59
PROVIDERS: Anesthesiology; PCP Family Medicine; Referring Provider Family Medicine; Visit Provider Surgery
PROC: 0DJD8ZZ Inspection of Lower Intestinal Tract, Via Natural or Artificial Opening Endoscopic (ICD-10-PCS; CPT 45378; principal; 2023-05-17 06:55)
DX: Z12.11 Encounter for screening for malignant neoplasm of colon (principal); R19.7 Diarrhea, unspecified; K64.9 Unspecified hemorrhoids; E66.9 Obesity, unspecified; K21.9 Gastro-esophageal reflux disease without esophagitis; Z80.0 Family history of malignant neoplasm of digestive organs; Z79.899 Other long term (current) drug therapy; Z68.27 Body mass index [BMI] 27.0-27.9, adult
CPT/HCPCS: 45380; 81025; 88305; J7120; J2405

== ENCOUNTER → 2025-09-24 | Outpatient (CLI) | payer OTHER, SELFPAY ==
[2025-09-24 10:25] LABS: Anion Gap 11 (5-15); BUN 12 mg/dL (4-19); BUN/Creat Ratio 13.6 RATIO (10-20); Calcium,Total 9.1 mg/dL (7.6-11.0); Carbon Dioxide 26.1 mmol/L (21.0-32.0); Chloride 103 mmol/L (98-108); Cholesterol 246 mg/dL (<=200); Glucose 100 mg/dL (70-99); Low Density Lipoprotein Calc. 154 mg/dL; Potassium 3.9 mmol/L (3.3-5.1); Triglycerides 193 mg/dL; Very Low Density Lipoprotein 39 mg/dL (5-40); cholesterol:hdl ratio screen 4.32
== END | disposition home or self-care (01) ==
LOC: MTLAB 07:57
PROVIDERS: PCP Family Medicine; Referring Provider Family Medicine; Visit Provider Family Medicine
DX: Z00.00 Encounter for general adult medical examination without abnormal findings (principal)
CPT/HCPCS: 36415; 80048; 80061